=== PATIENT | male | born 1960 | race Caucasian/White ===

== ENCOUNTER → 2024-01-20 14:24 | Outpatient (REF) | payer OTHER, SELFPAY | LOC: MRI 3T 14:24 | PROVIDERS: ATTENDING PHYSICIAN Specialist; FAMILY PHYSICIAN Internal Medicine | DX: C61 Malignant neoplasm of prostate (principal) | CPT/HCPCS: 72197; A9575 ==

== ENCOUNTER → 2024-03-08 09:28 | Outpatient (REF) | payer OTHER, SELFPAY | LOC: PET 09:28 | PROVIDERS: ATTENDING PHYSICIAN Internal Medicine Cardiovascular Disease | DX: R07.9 Chest pain, unspecified (principal) | CPT/HCPCS: 78431; A9555; J2785 ==

== ENCOUNTER → 2024-04-15 11:45 | Outpatient (REF) | payer OTHER, SELFPAY | LOC: PET 11:45 | PROVIDERS: ATTENDING PHYSICIAN Radiology Radiation Oncology | DX: C61 Malignant neoplasm of prostate (principal) | CPT/HCPCS: 78815; A9595 ==